=== PATIENT | female | born 1940 | race Caucasian/White ===

== ENCOUNTER → 2016-11-02 | Outpatient (CLI) | payer OTHER ==
[~2016-11-02] MED LIST: CELEBREX PO; FLEXERIL PO; PREMARIN0.625 MG PO; SINGULAIR PO; TRAMADOL HCL50 M1 PO; ZYRTEC-D T1 TAB.SR1 PO
--- NOTE | ~2016-11-02 | CR63 ---
[facility] A Service of [facility] & [facility] RADIOLOGY TEXT RESULTS PATIENT: VICK ANAYA LOCATION: [facility] : 44 UNIT #: [id number] AGE: [address]: Tra Metzger MD SEX: F ORDER DR: [id number] [facility] [address] [place], [place] [address] [id number] O MR#: [id number] Acc #: [id number] NAME: VICK ANAYA : 1940 SEX: F STUDY DATE/TIME: 11/02/2016 11:09 UNIT: [facility] ROOM: STUDY DESCRIPTION: CR Chest 2 View Attending Physician: Tra Metzger M.D. Referring Physician: Tra Metzger M.D. Ordering Physician: Tra Metzger M.D. Primary Care Physician: Jakob Wong M.D. MEDICAL IMAGING REPORT This report is preliminary unless electronic signature is present EXAM Two-view chest 11/02/2016 HISTORY 76-year-old female with cough and shortness of air for 4 weeks. COMPARISON STUDIES Chest 10/25/2014. FINDINGS 2 views of the chest demonstrate clear lungs. No pleural effusion or pneumothorax. Heart size and mediastinum are normal. Pulmonary vasculature unremarkable. IMPRESSION No acute cardiopulmonary findings. Dictated by... Dewayne Boles M.D. THIS IS AN ELECTRONICALLY VERIFIED REPORT Dewayne Boles M.D. at 11/03/2016 6:38 PM DEZ/jonny TD: 11/02/2016 18:07 JOB #: [id number] MEDICAL IMAGING REPORT Page 1 of 1 COPY
== END | disposition home or self-care (01) ==
LOC: CRAD 10:51
DX: R06.02 Shortness of breath (principal); R05 Cough
CPT/HCPCS: 71020